=== PATIENT | female | born 1960 | race Caucasian/White ===

== ENCOUNTER 2021-10-12 20:27 | Emergency (ER) | payer OTHER ==
[~2021-10-12] VITALS: Ht 157.5 cm; Wt 81.6 kg
[2021-10-12 21:06] VITALS: BP 128/88
--- NOTE | 2021-10-12 23:16 | NUR ---
Dr. Turner at [facility] to exam patient.
--- NOTE | 2021-10-12 23:46 | NUR ---
61 Y/O F BIB FOR RT HIP PAIN. PT FELL OVER A HOSE AND IMMEDIATLY FELT A PAIN IN HER RIGHT HIP. PT WAS WORRIED HER HIP REPLACEMENT SHATTERED. PT IS A&OX4. NON-AMBULATORY, SKIN INTACT.PT DENIES BLACKING OUT BUT SHE DID HIT HEAD ON CAR. PT HAS A HX OF HTN AND HIP REPLACEMENT SUREGRY. RX: PRIMIDONE, ZOLOFT, LISINOPRIL ALLERGIES: GELATIN , RESULTS IN SPASMS
--- NOTE | 2021-10-13 00:55 | NUR ---
Placed patient on Chair A, Dr. Turner re-exam patient.
--- NOTE | 2021-10-13 01:02 | NUR ---
Patient transfer to CT scan via wheelchair with technical aid.
--- NOTE | 2021-10-13 01:15 | NUR ---
Patient came back from CT scan.
[2021-10-13] MEDS ORDERED: HYDROcodone/APAP 5/325 MG 1 TAB TAB PO ONE (01:20)
--- NOTE | 2021-10-13 01:33 | NUR ---
Place patient on bed 8, patient's family at bedside.
--- NOTE | 2021-10-13 05:25 | NUR ---
Patient discharged with v/s stable. Written and verbal after care instructions given and explained. Patient alert, oriented and verbalized understanding of instructions. PT WHEELCHAIRED with to car. All questions addressed prior to discharge. ID band removed. Patient advised to follow up with PMD. Opportunity to ask questions provided and answered.
[2021-10-13 05:52] VITALS: BP 124/80
[2021-10-14] MEDS ORDERED: IBUP-2218 PO (04:31)
== END 2021-10-13 05:25 | disposition home or self-care (01) ==
LOC: MED 20:27
DX: M25.551 Pain in right hip (principal); M25.561 Pain in right knee; I10 Essential (primary) hypertension; Z98.890 Other specified postprocedural states; W19.XXXA Unspecified fall, initial encounter; Y93.89 Activity, other specified; Y92.89 Other specified places as the place of occurrence of the external cause; Y99.8 Other external cause status
CPT/HCPCS: 72192; 73502; 73562; 99285